=== PATIENT | female | born 1965 | race Caucasian/White ===

== ENCOUNTER → 2016-02-18 | Outpatient (CLI) | payer MEDICAID ==
[~2016-02-18] MED LIST: ALBU8.5H4 IH; ALPR1TAB PO; ALPR1TAB2; ASPI-860 PO; CITA20TA12 PO; HYDR-3702 PO; HYDR-3754 PO; HYDR-3811 PO; LOVA20TA2 PO; NAPR550T PO; NF-TORA10 PO; NITR100C3 PO; OMEP20TA PO; ONDA4TAB8 PO; PRED20TA PO; PRM25T PO; PROM25SU10 PR; TRAM-25 PO; TRAZ100T92; TRAZ150T72 PO; TRL300; [UNRECOGNIZED DRUG - CODE] PO
--- NOTE | 2016-02-18 16:03 | Diagnostic Imaging Report ---
INDICATION: Fall, wrist pain. COMPARISON: 04/10/2013. FINDINGS: Cyst formation in the distal pole of the scaphoid shows mild progression as does its arthritic joint space narrowing distally. A fracture is not identified. The distal radius and ulna are intact. IMPRESSION: Progressive radial sided carpal osteoarthritis. No fracture is identified. Dictated by: Dictated on workstation # [id number]
== END ==
LOC: RAD 15:32
PROVIDERS: ATTEND Family Medicine
DX: M25.531 Pain in right wrist (principal); W10.8XXA Fall (on) (from) other stairs and steps, initial encounter; M19.031 Primary osteoarthritis, right wrist
CPT/HCPCS: 73110

== ENCOUNTER → 2016-03-03 | Outpatient (CLI) | payer MEDICAID | LOC: RAD 14:26 | PROVIDERS: ATTEND Family Medicine | DX: M25.531 Pain in right wrist (principal) | CPT/HCPCS: 73100 ==

== ENCOUNTER → 2016-03-16 | Outpatient (CLI) | payer MEDICAID | LOC: RAD 11:13 | PROVIDERS: ATTEND Family Medicine | DX: M25.531 Pain in right wrist (principal); R07.81 Pleurodynia; R93.8 Abnormal findings on diagnostic imaging of other specified body structures | CPT/HCPCS: 71100; 73221 ==

== ENCOUNTER → 2016-03-19 | Outpatient (CLI) | payer MEDICAID | LOC: RAD 10:57 | PROVIDERS: ATTEND Family Medicine | DX: R07.81 Pleurodynia (principal); K76.89 Other specified diseases of liver | CPT/HCPCS: 71250 ==

== ENCOUNTER 2016-03-23 08:51 | Emergency (ER) | payer MEDICAID ==
[~2016-03-23] VITALS: Ht 157.5 cm; Wt 57.0 kg
[2016-03-23] MEDS ORDERED: HYDROmorphone 1 MG/ML (DILAUDID) SYRINGE IV ONE ×2 (09:25→10:20)
[2016-03-23] MEDS ORDERED: SODIUM CHLORIDE FLUSH 10 ML SYR IV PRN (09:25)
[2016-03-23] MEDS ORDERED: LORazepam 2 MG/ML (ATIVAN) 1 ML VIAL IV ONE (09:25)
[2016-03-23] MEDS ORDERED: PROMETHAZINE HCL INJ 25 MG in SODIUM CHLORIDE 25 ML IV ONE (09:25)
[2016-03-23] MEDS ORDERED: SODIUM CHLORIDE FLUSH 3 ML SYR IV PRN (09:25)
[2016-03-23 09:39] LABS: BASOPHILS % (AUTO) 0 % (0-2); EOSINOPHILS % (AUTO) 0 % (0-4); LYMPHOCYTES # (AUTO) 1.7 X10^3; MEAN CORPUSCULAR HGB CONC 35.2 g/dL (31.0-37.0); MEAN CORPUSCULAR VOLUME 90 FL (80-100); MEAN PLATELET VOLUME 9.6 FL (6.0-9.5); MONOCYTES # (AUTO) 0.5 X10^3; MONOCYTES % (AUTO) 5 % (3-11); NEUTROPHILS # (AUTO) 8.2 X10^3; NEUTROPHILS % (AUTO) 79 % (51-67); PLATELET COUNT 350 10^3uL (150-450); WHITE BLOOD COUNT 10.48 10^3uL (4.0-11.0)
[2016-03-23 09:40] LABS: MEAN CORPUSCULAR HEMOGLOBIN 31.6 PG (26.0-34.0)
[2016-03-23 09:50] LABS: ALBUMIN 4.4 g/dL (3.4-5.0); ANION GAP 15.3 MEQ/L (3-15); CALCULATED IONIZED CALCIUM 3.9 mg/dL (3.8-4.6); TOTAL PROTEIN 7.5 g/dL (6.4-8.5)
[2016-03-23 10:50] VITALS: BP 111/77
== END 2016-03-23 10:51 | disposition home or self-care (01) ==
LOC: EDUNIT# 08:51 → ED 08:52
DX: R07.9 Chest pain, unspecified (principal); R11.2 Nausea with vomiting, unspecified; F41.9 Anxiety disorder, unspecified
CPT/HCPCS: 36415; 80053; 83690; 85025; 96365; 96375; 96376; 99284; J1170; J2060; J2550; J7030; 99283

== ENCOUNTER → 2016-03-24 | Outpatient (CLI) | payer MEDICAID | LOC: RAD 09:06 | PROVIDERS: ATTEND Family Medicine | DX: K76.89 Other specified diseases of liver (principal) | CPT/HCPCS: 76705 ==

== ENCOUNTER 2016-05-19 09:27 | Emergency (ER) | payer MEDICAID ==
[~2016-05-19] VITALS: Ht 157.5 cm; Wt 60.0 kg
--- OUTSIDE RECORDS SUMMARY | 2016-05-19 09:31 | XMS REPORT | Continuity of Care Document ---
Author Author [facility] Organization [facility] Address Unknown Phone Unavailable Allergies Active Description Code Type Severity Reaction Onset Reported/Identified Relationship to Patient Clinical Status Yes NKA NKA Drug Allergy N/A N/A Yes codeine 1550 Ingredient moderate Nausea / Vomiting 03/26/2015 Yes Flagyl 7327 Drug moderate Nausea / Vomiting 03/26/2015 Yes traMADol 4180 Ingredient mild to moderate headache 03/26/2015 Yes Sulfa (Sulfonamide Antibiotics) 491 Allergen Group severe GI Problems 03/27/2015 Yes codeine [id number] Drug Allergy Moderate N/A 09/20/2015 Yes oxycodone HCl [id number] Drug Allergy Moderate Nausea/ Vomiting 09/20/2015 Yes Sulfa (Sulfonamide Antibiotics) [id number] Drug Allergy Unknown Hives 09/20/2015 Yes tramadol [id number] Drug Allergy Unknown N/V, Headache 09/20/2015 Yes Penicillins [id number] Drug Allergy Unknown N/A 03/23/2016 Medications Problems Date Dx Coded Attending Type Code Diagnosis Diagnosed By 09/10/2011 Ot 845.00 09/10/2011 Ot E883.9 11/07/2012 LARA ALLEN DO Ot 845.09 11/07/2012 LARA ALLEN DO Ot 959.7 11/07/2012 LARA ALLEN DO Ot E849.0 11/07/2012 LARA ALLEN DO Ot E927.0 04/01/2013 JUAN US MD P Ot 719.43 04/01/2013 MAGEN FOWLER, JUAN Chin Ot 842.00 04/01/2013 JUAN US MD P Ot E849.0 04/01/2013 MAGEN FOWLER, JUAN P Ot E888.9 05/09/2013 LARA ALLEN DO Ot 719.46 05/09/2013 LARA ALLEN DO Ot 836.1 05/09/2013 LARA ALLEN DO Ot E849.0 05/09/2013 LARA ALLEN DO Ot E928.8 08/03/2013 LARA ALLEN DO Ot 844.9 08/03/2013 LARA ALLEN DO Ot 959.7 08/03/2013 LARA ALLEN DO Ot E849.0 08/03/2013 LARA ALLEN DO Ot E888.9 10/26/2013 KAYY DE LA ROSA DO Ot 305.1 10/26/2013 KAYY DE LA ROSA DO Ot 465.9 10/26/2013 KAYY DE LA ROSA DO Ot 786.2 01/27/2014 Ot 719.47 01/27/2014 Ot 719.46 01/27/2014 Ot 924.11 01/27/2014 Ot E888.9 01/27/2014 Ot 573.8 01/27/2014 Ot 592.0 01/27/2014 Ot 789.03 01/27/2014 Ot V76.12 01/27/2014 Tien FOWLER, Otoniel Avalos Ot 719.43 01/27/2014 Otoniel Chauhan MD Ot 793.7 01/27/2014 Otoinel Chauhan MD Ot 719.43 01/27/2014 Alex FOWLER, Moshe Mantilla Ot 719.46 01/27/2014 Alex FOWLER, Moshe Mantilla Ot 727.51 01/27/2014 Alex FOWLER, Moshe Mantilla Ot 794.9 01/27/2014 Alex FOWLER, Moshe Mantilla Ot 719.46 01/27/2014 Alex FOWLER, Moshe Mantilla Ot 727.51 01/27/2014 Alex FOWLER, Moshe Mantilla Ot 794.9 01/27/2014 Otoniel Chauhan MD Ot 305.1 01/27/2014 Otoniel Chauhan MD Ot 466.0 01/27/2014 ROCHA KIMBERLY STEWART Ot 719.43 01/27/2014 KIMBERLY ROCHA DO Ot 727.04 04/27/2014 CHERELLE MANCIA MD Ot 599.0 04/27/2014 CHERELLE MANCIA MD Ot 788.1 06/12/2014 Ot 719.47 06/12/2014 Ot 719.46 06/12/2014 Ot 924.11 06/12/2014 Ot E888.9 06/12/2014 Ot 573.8 06/12/2014 Ot 592.0 06/12/2014 Ot 789.03 06/12/2014 Ot V76.12 06/12/2014 Tien FOWLER, Otoniel Avalos Ot 719.43 06/12/2014 Tien FOWLER, Otoniel Avalos Ot 793.7 06/12/2014 Tien FOWLER, Otoniel Avalos Ot 719.43 06/12/2014 Alex FOWLER, Moshe Mantilla Ot 719.46 06/12/2014 Alex FOWLER, Moshe Mantilla Ot 727.51 06/12/2014 Alex FOWLER, Moshe Mantilla Ot 794.9 06/12/2014 Alex FOWLER, Moshe Mantilla Ot 719.46 06/12/2014 Alex FOWLER, Moshe Mantilla Ot 727.51 06/12/2014 Alex FOWLER, Moshe Mantilla Ot 794.9 06/12/2014 Otoniel Chauhan MD Ot 305.1 06/12/2014 Otoniel Chauhan MD Ot 466.0 06/12/2014 Otoniel Chauhan MD Ot 780.79 06/12/2014 CORI LEO SERVICE CAR OPERATOR Ot 558.9 06/20/2014 Otoniel Chauhan MD Ot 780.79 06/20/2014 CORI LEO SERVICE CAR OPERATOR Ot 558.9 07/18/2014 RJ DOKAYY M Ot 845.10 07/18/2014 RJ DOKAYY M Ot 959.7 07/18/2014 RJ DOKAYY M Ot E000.9 07/18/2014 RJ DOKAYY M Ot E030 07/18/2014 RJ DOKAYY M Ot E849.0 07/18/2014 RJ DOKAYY M Ot E880.9 08/29/2014 TAYLOR FOWLER, LING Ot 733.6 08/29/2014 TAYLOR FOWLER, LING Ot 786.50 09/12/2014 ANA SHIPMAN SERVICE CAR OPERATOR Ot 789.00 09/18/2014 ANA SHIPMAN SERVICE CAR OPERATOR Ot 789.00 09/24/2014 Tien FOWLER, Otoniel Avalos Ot 573.8 09/24/2014 Tien FOWLER, Otoniel Avalos Ot 592.0 09/24/2014 Tien FOWLER, Otoniel Avalos Ot 593.2 09/24/2014 Tien FOWLER, Otoniel Avalos Ot 789.03 10/15/2014 TAYLOR FOWLER, LING Ot 729.5 10/15/2014 TAYLOR FOWLER, LING Ot 826.0 10/15/2014 TAYLOR FOWLER, LING Ot E849.0 10/15/2014 TAYLOR FOWLER, LING Ot E917.3 10/23/2014 BLANCHE FOWLER, CHERELLE P Ot 719.46 10/23/2014 BLANCHE FOWLER, CHERELLE P Ot 829.0 10/23/2014 BLANCHE FOWLER, CHERELLE P Ot 844.9 10/23/2014 BLANCHE FOWLER, CHERELLE P Ot 905.1 10/23/2014 BLANCHE FOWLER, CHERELLE P Ot E849.0 10/23/2014 BLANCHE FOWLER, CHERELLE P Ot E927.0 12/30/2014 ANA SHIPMAN SERVICE CAR OPERATOR Ot R11.10 03/17/2015 BRI GARCIA MD, MALGORZATA J Ot R10.30 03/17/2015 BRI GARCIA MD, MALGORZATA J Ot R31.9 03/20/2015 ANA SHIPMAN SERVICE CAR OPERATOR Ot R11.11 03/21/2015 BRI GARCIA MD, MALGORZATA Mantilla Ot K76.89 03/21/2015 BRI GARCIA MD, MALGORZATA J Ot N20.0 03/21/2015 BRI GARCIA MD, MALGORZATA J Ot N28.1 03/21/2015 BRI GARCIA MD, MALGORZATA Mantilla Ot R10.9 03/21/2015 BRI GARCIA MD, MALGORZATA J Ot R31.9 03/28/2015 Hector Garcia N20.0 Calculus Of Kidney 07/21/2015 ANA SHIPMAN L SERVICE CAR OPERATOR Ot R06.02 SHORTNESS OF BREATH 07/29/2015 ANA SHIPMAN SERVICE CAR OPERATOR Ot J44.9 CHRONIC OBSTRUCTIVE PULMONARY DISEASE, U 08/01/2015 WILANA BALBUENA SERVICE CAR OPERATOR Ot R06.02 SHORTNESS OF BREATH 08/08/2015 WILANA BALBUENA SERVICE CAR OPERATOR Ot J44.9 CHRONIC OBSTRUCTIVE PULMONARY DISEASE, U 09/12/2015 CORI LEO SERVICE CAR OPERATOR Ot 558.9 NONINF GASTROENTERIT NEC 09/20/2015 BALDOMERO GIBSON MD R Ot A09 INFECTIOUS GASTROENTERITIS AND COLITIS, 09/20/2015 BALDOMERO GIBSON MD R Ot R11.2 NAUSEA WITH VOMITING, UNSPECIFIED 09/25/2015 MALGORZATA ALONSO MD Ot K52.9 NONINFECTIVE GASTROENTERITIS AND COLITIS 09/25/2015 MALGORZATA ALONSO MD Ot Z86.19 PERSONAL HISTORY OF OTHER INFECTIOUS AND 09/26/2015 BALDOMERO GIBSON MD R Ot A09 INFECTIOUS GASTROENTERITIS AND COLITIS, 09/26/2015 BALDOMERO GIBSON MD R Ot R11.2 NAUSEA WITH VOMITING, UNSPECIFIED 2015 MALGORZATA ALONSO MD Ot K52.9 NONINFECTIVE GASTROENTERITIS AND COLITIS 2015 MALGORZATA ALONSO MD Ot Z86.19 PERSONAL HISTORY OF OTHER INFECTIOUS AND 12/30/2015 MALGORZATA ALONSO MD Ot K52.9 NONINFECTIVE GASTROENTERITIS AND COLITIS 12/30/2015 MALGORZATA ALONSO MD Ot Z86.19 PERSONAL HISTORY OF OTHER INFECTIOUS AND 01/13/2016 WILANA BALBUENA SERVICE CAR OPERATOR Ot R06.02 SHORTNESS OF BREATH 01/13/2016 WILANA BALBUENA SERVICE CAR OPERATOR Ot J44.9 CHRONIC OBSTRUCTIVE PULMONARY DISEASE, U 01/22/2016 MALGORZATA ALONSO MD Ot R10.2 PELVIC AND PERINEAL PAIN 01/22/2016 MALGORZATA ALONSO MD Ot R30.0 DYSURIA 02/04/2016 KIMBERLY ROCHA DO Ot K52.9 NONINFECTIVE GASTROENTERITIS AND COLITIS 02/04/2016 KIMBERLY ROCHA DO Ot R11.11 VOMITING WITHOUT NAUSEA 02/05/2016 MALGORZATA ALONSO MD Ot R10.2 PELVIC AND PERINEAL PAIN 02/05/2016 MALGORZATA ALONSO MD Ot R30.0 DYSURIA 02/06/2016 KIMBERLY ROCHA DO Ot K52.9 NONINFECTIVE GASTROENTERITIS AND COLITIS 02/06/2016 KIMBERLY ROCHA DO Ot R11.11 VOMITING WITHOUT NAUSEA 02/06/2016 KIMBERLY ROCHA DO Ot K52.9 NONINFECTIVE GASTROENTERITIS AND COLITIS 02/06/2016 KIMBERLY ROCHA DO Ot R11.11 VOMITING WITHOUT NAUSEA 02/10/2016 KIMBERLY ROCHA DO Ot K52.9 NONINFECTIVE GASTROENTERITIS AND COLITIS 02/10/2016 KIMBERLY ROCHA DO Ot R11.11 VOMITING WITHOUT NAUSEA 02/21/2016 MALGORZATA ALONSO MD Ot M19.031 PRIMARY OSTEOARTHRITIS, RIGHT WRIST 02/21/2016 MALGORZATA ALONSO MD Ot M25.531 PAIN IN RIGHT WRIST 02/21/2016 MALGORZATA ALONSO MD Ot W10.8XXA FALL (ON) (FROM) OTHER STAIRS AND STEPS, 02/23/2016 MALGORZATA ALONSO MD Ot M19.031 PRIMARY OSTEOARTHRITIS, RIGHT WRIST 02/23/2016 MALGORZATA ALONSO MD Ot M25.531 PAIN IN RIGHT WRIST 02/23/2016 MALGORZATA ALONSO MD Ot W10.8XXA FALL (ON) (FROM) OTHER STAIRS AND STEPS, 03/05/2016 MALGORZATA ALONSO MD Ot M25.531 PAIN IN RIGHT WRIST 03/08/2016 MALGORZATA ALONSO MD Ot M25.531 PAIN IN RIGHT WRIST 03/09/2016 MALGORZATA ALONSO MD Ot M25.531 PAIN IN RIGHT WRIST 03/18/2016 MALGORZATA ALONSO MD Ot M25.531 PAIN IN RIGHT WRIST 03/18/2016 MALGORZATA ALONSO MD Ot R07.81 PLEURODYNIA 03/18/2016 MALGORZATA ALONSO MD Ot R93.8 ABNORMAL FINDINGS ON DIAGNOSTIC IMAGING 03/18/2016 MALGORZATA ALONSO MD Ot M25.531 PAIN IN RIGHT WRIST 03/23/2016 LING VAZQUEZ MD, Ot F41.9 ANXIETY DISORDER, UNSPECIFIED 03/23/2016 LING VAZQUEZ MD Ot R07.9 CHEST PAIN, UNSPECIFIED 03/23/2016 LING VAZQUEZ MD Ot R11.2 NAUSEA WITH VOMITING, UNSPECIFIED 03/26/2016 MALGORZATA ALONSO MD Ot K76.89 OTHER SPECIFIED DISEASES OF LIVER 03/26/2016 MALGORZATA ALONSO MD Ot R07.81 PLEURODYNIA 03/29/2016 LING VAZQUEZ MD, Ot F41.9 ANXIETY DISORDER, UNSPECIFIED 03/29/2016 LING VAZQUEZ MD Ot R07.9 CHEST PAIN, UNSPECIFIED 03/29/2016 LING VAZQUEZ MD Ot R11.2 NAUSEA WITH VOMITING, UNSPECIFIED 03/30/2016 MALGORZATA ALONSO MD Ot K76.89 OTHER SPECIFIED DISEASES OF LIVER 04/05/2016 MALGORZATA ALONSO MD, Ot M25.531 PAIN IN RIGHT WRIST 04/05/2016 MALGORZATA ALONSO MD Ot R07.81 PLEURODYNIA 04/05/2016 MALGORZATA ALONSO MD Ot R93.8 ABNORMAL FINDINGS ON DIAGNOSTIC IMAGING 04/08/2016 MALGORZATA ALONSO MD Ot M19.031 PRIMARY OSTEOARTHRITIS, RIGHT WRIST 04/08/2016 MALGORZATA ALONSO MD Ot M25.531 PAIN IN RIGHT WRIST 04/08/2016 MALGORZATA ALONSO MD Ot W10.8XXA FALL (ON) (FROM) OTHER STAIRS AND STEPS, 04/08/2016 MALGORZATA ALONSO MD Ot K76.89 OTHER SPECIFIED DISEASES OF LIVER 04/08/2016 MALGORZATA ALONSO MD Ot R07.81 PLEURODYNIA 04/09/2016 MALGORZATA ALONSO MD Ot K76.89 OTHER SPECIFIED DISEASES OF LIVER Procedures Results Test Result Range Complete blood count (CBC) with automated white blood cell (WBC) differential - 09/20/15 19:40 Blood automated leukocyte count 12.16 4.0-11.0 Erythrocytes 4.98 4.00-5.00 12.0-16.0;g/dL 15.4 12.0-15.5 Hematocrit 43.50 35.00-45.00 Automated erythrocyte mean corpuscular volume 87 80-100 Mean corpuscular hemoglobin (MCH) determination 30.9 26.0-34.0 Automated erythrocyte mean corpuscular hemoglobin concentration measurement ( mass/volume) 35.4 31.0-37.0 Erythrocyte distribution width 15.2 11.8 -15.6 Automated blood platelet count 355 150- 450 Automated blood platelet mean volume measurement 9.8 6.0-9.5 Automated neutrophil percentage 64 51- 67 Lymphocytes/100 leukocytes 27 20-46 Automated monocyte percentage 8 3-11 Eosinophil count auto 1 0-4 Automated basophil percentage 0 0-2 Automated blood neutrophil count 7.8 Blood lymphocytes count (number/volume) 3.3 Automated blood monocyte count 1.0 Blood absolute eosinophil count 0.1 Basophils 0.0 Comprehensive metabolic panel - 09/20/15 19:40 Sodium measurement 107 70-110 Carbon dioxide measurement 24 22-29 Serum or plasma anion gap 19.3 3-15 BLOOD UREA NITROGEN 13 7-18 CREATININE SERUM 0.66 0.6-1.2 Brucella species antibody panel (IgG, IgM) 20 10-20 Estimated glomerular filtration rate (GFR) 115.2 Estimated glomerular filtration rate (GFR) non- 95.2 OSMOLALITY,CALCULATED 280 280-300 CALCIUM 10.2 8.8-10.8 Calculated ionized calcium measurement 4.2 3.8-4.6 BILIRUBIN,TOTAL 0.7 0.1-1.0 Serum or plasma alkaline phosphatase measurement 92 38-126 ASPARTATE AMINO TRANSFERASE 18 15-37 ALANINE AMINOTRANSFERASE 16 30-65 Serum or plasma total protein measurement 7.9 6.4-8.5 Serum or plasma albumin measurement 4.8 3.4-5.0 Serum or plasma albumin/globulin mass ratio 1.548 1.1-1.8 Serum or plasma amylase measurement - 09/20/15 19:40 Serum or plasma amylase measurement 55 25-115 Lipase measurement - 09/20/15 19:40 Lipase measurement 48 23-300 UA CULTURE IF INDICATED* - 09/20/15 20:00 COLLECTION METHOD CLEAN CATCH Color of urine by auto Dark Yellow Urine appearance determination Slightly Cloudy Urine pH measurement by automated test strip 6.0 5.0 - 8.0 Specific gravity of urine by automated test strip >= 1.005-1.030 Urine protein measurement by test strip (mass/volume) Trace Negative Urine glucose detection by automated test strip Negative Negative Urine erythrocytes count by automated test strip (number/volume) Trace-lysed Negative Urine ketones detection by automated test strip Negative Negative Urine nitrite detection by test strip Negative Negative Urine total bilirubin detection by automated test strip Negative Negative Urine urobilinogen measurement by automated test strip (mass/volume) 0.2 0.2-1.0 Urine leukocyte esterase detection by dipstick Negative Negative Microscopic examination of urine - 09/20/15 20:00 Urine volume measurement 12 mL Urine erythrocytes detection by automated method 2-5 Automated urine sediment leukocyte count by microscopy (number/high power field ) Bacteria None Seen SQUAMOUS EPITHELIAL CELL,UR >100 MUCOUS,URINE 2+ GASTROINTESTINAL PNL BY PCR - 09/22/15 12:15 Campylobacter sp DNA Negative Negative Clostridium difficile toxin genes Negative Negative Pleasiomonas shigelloides Negative Negative Salmonella sp DNA Negative Negative Vibrio sp DNA Negative Negative Vibrio cholerae DNA Negative Negative Yersinia sp DNA Negative Negative Escherichia coli DNA Negative Negative Escherichia coli shiga-llike toxin (sxt1+sxt2)+H7 Negative Negative Escherichia coli O157:H7 DNA Negative Negative Cryptosporidium sp DNA Negative Negative Cyclospora cayetanensis DNA Negative Negative Entamoeba histolytica DNA Negative Negative Giardia lamblia DNA Negative Negative Adenovirus DNA Negative Negative Astrovirus Negative Negative Norovirus RNA Negative Negative Rotavirus RNA Negative Negative Sapovirus Negative Negative Stool leukocytes detection by light microscopy - 09/22/15 12:15 General health panel - 09/22/15 12:15 Total cell count DISLA FOR RESULTS: * - NEW RESULT - RESULT WAS MODIFIED AFTER FINAL STATUS SET Urine culture - 01/16/16 14:43 Urine culture DISLA FOR RESULTS: * - NEW RESULT - RESULT WAS MODIFIED AFTER FINAL STATUS SET Complete blood count (CBC) with automated white blood cell (WBC) differential - 01/16/16 15:00 Blood automated leukocyte count 8.59 4.0 -11.0 Erythrocytes 4.68 4.00-5.00 12.0-16.0;g/dL 14.7 12.0-15.5 Hematocrit 43.00 35.00-45.00 Automated erythrocyte mean corpuscular volume 92 80-100 Mean corpuscular hemoglobin (MCH) determination 31.4 26.0-34.0 Automated erythrocyte mean corpuscular hemoglobin concentration measurement ( mass/volume) 34.2 31.0-37.0 Erythrocyte distribution width 15.3 11.8 -15.6 Automated blood platelet count 346 150- 450 Automated blood platelet mean volume measurement 10.4 6.0-9.5 Automated neutrophil percentage 49 51- 67 Lymphocytes/100 leukocytes 40 20-46 Automated monocyte percentage 6 3-11 Eosinophil count auto 5 0-4 Automated basophil percentage 0 0-2 Automated blood neutrophil count 4.2 Blood lymphocytes count (number/volume) 3.4 Automated blood monocyte count 0.5 Blood absolute eosinophil count 0.4 Basophils 0.0 Comprehensive metabolic panel - 01/16/16 15:00 Sodium measurement 84 70-110 Carbon dioxide measurement 31 22-29 Serum or plasma anion gap 12.9 3-15 BLOOD UREA NITROGEN 7 7-18 CREATININE SERUM 0.71 0.6-1.2 Brucella species antibody panel (IgG, IgM) 10 10-20 Estimated glomerular filtration rate (GFR) 105.4 Estimated glomerular filtration rate (GFR) non- 87.1 OSMOLALITY,CALCULATED 277 280-300 CALCIUM 9.9 8.8-10.8 Calculated ionized calcium measurement 4.5 3.8-4.6 BILIRUBIN,TOTAL 0.3 0.1-1.0 Serum or plasma alkaline phosphatase measurement 106 38-126 ASPARTATE AMINO TRANSFERASE 14 15-37 ALANINE AMINOTRANSFERASE 21 30-65 Serum or plasma total protein measurement 6.7 6.4-8.5 Serum or plasma albumin measurement 4.5 3.4-5.0 Serum or plasma albumin/globulin mass ratio 2.045 1.1-1.8 Complete blood count (CBC) with automated white blood cell (WBC) differential - 03/23/16 09:31 Blood automated leukocyte count 10.48 4.0-11.0 Erythrocytes 4.87 4.00-5.00 12.0-16.0;g/dL 15.4 12.0-15.5 Hematocrit 43.80 35.00-45.00 Automated erythrocyte mean corpuscular volume 90 80-100 Mean corpuscular hemoglobin (MCH) determination 31.6 26.0-34.0 Automated erythrocyte mean corpuscular hemoglobin concentration measurement ( mass/volume) 35.2 31.0-37.0 Erythrocyte distribution width 15.9 11.8 -15.6 Automated blood platelet count 350 150- 450 Automated blood platelet mean volume measurement 9.6 6.0-9.5 Automated neutrophil percentage 79 51- 67 Lymphocytes/100 leukocytes 16 20-46 Automated monocyte percentage 5 3-11 Eosinophil count auto 0 0-4 Automated basophil percentage 0 0-2 Automated blood neutrophil count 8.2 Blood lymphocytes count (number/volume) 1.7 Automated blood monocyte count 0.5 Blood absolute eosinophil count 0.0 Basophils 0.0 Comprehensive metabolic panel - 03/23/16 09:31 Sodium measurement 108 70-110 CARBON DIOXIDE 22 22-29 Serum or plasma anion gap 15.3 3-15 BLOOD UREA NITROGEN 14 7-18 CREATININE SERUM 0.61 0.6-1.2 Brucella species antibody panel (IgG, IgM) 23 10-20 Estimated glomerular filtration rate (GFR) 125.6 Estimated glomerular filtration rate (GFR) non- 103.8 OSMOLALITY,CALCULATED 278 280-300 CALCIUM 9.1 8.8-10.8 Calculated ionized calcium measurement 3.9 3.8-4.6 BILIRUBIN,TOTAL 0.7 0.1-1.0 Serum or plasma alkaline phosphatase measurement 120 38-126 ASPARTATE AMINO TRANSFERASE 20 15-37 ALANINE AMINOTRANSFERASE 27 30-65 Serum or plasma total protein measurement 7.5 6.4-8.5 Serum or plasma albumin measurement 4.4 3.4-5.0 Serum or plasma albumin/globulin mass ratio 1.419 1.1-1.8 Lipase measurement - 03/23/16 09:31 Lipase measurement 29 23-300 Encounters ACCT No. Visit Date/Time Discharge Status Pt. Type Provider Facility Loc./Unit Complaint [id number] 03/27/2015 09:26:00 03/27/2015 23: 59:00 DIS Outpatient Hector Garcia [facility] OUTPT right ESWL; cystoscopy with right retrogrades
--- OUTSIDE RECORDS SUMMARY | 2016-05-19 09:32 | XMS REPORT | Continuity of Care Document ---
Author Author [facility] Organization [facility] Address Unknown Phone Unavailable Allergies Active Description [...] Group severe GI Problems 03/27/2015 Yes codeine [id number] Drug Allergy Moderate N/A 09/20/2015 Yes oxycodone HCl [id number] Drug Allergy Moderate Nausea/ Vomiting 09/20/2015 Yes Sulfa (Sulfonamide Antibiotics) [id number] Drug Allergy Unknown Hives 09/20/2015 Yes tramadol [id number] Drug Allergy Unknown N/V, Headache 09/20/2015 Yes Penicillins [id number] Drug Allergy Unknown N/A 03/23/2016 Medications Problems Date Dx Coded Attending Type Code Diagnosis Diagnosed By 09/10/2011 Ot 845.00 09/10/2011 Ot E883.9 11/07/2012 LAAR ALLEN DO Ot 845.09 11/07/2012 LARA ALLEN [...] 01/27/2014 Otoniel Chauhan MD Ot 793.7 01/27/2014 Otoniel Chauhan MD Ot 719.43 01/27/2014 Alex FOWLER, [...] Chauhan MD Ot 780.79 06/12/2014 CORI LEO INTERPRETER AND TRANSLATOR Ot 558.9 06/20/2014 Otoniel Chauhan MD Ot 780.79 06/20/2014 CORI LEO INTERPRETER AND TRANSLATOR Ot 558.9 07/18/2014 RJ DOKAYY M Ot 845.10 07/18/2014 RJ DOKAYY M Ot 959.7 07/18/2014 RJ DOKAYY M Ot E000.9 07/18/2014 RJ DOKAYY M Ot E030 07/18/2014 RJ DOKAYY M Ot E849.0 07/18/2014 RJ DOKAYY M Ot E880.9 08/29/2014 TAYLOR FOWLER, LING Ot 733.6 08/29/2014 TAYLOR FOWLER, LING Ot 786.50 09/12/2014 ANA SHIPMAN INTERPRETER AND TRANSLATOR Ot 789.00 09/18/2014 ANA SHIPMAN INTERPRETER AND TRANSLATOR Ot 789.00 09/24/2014 Tien FOWLER, Otoniel Avalos [...] CHERELLE P Ot E927.0 12/30/2014 ANA SHIPMAN INTERPRETER AND TRANSLATOR Ot R11.10 03/17/2015 BRI GARCIA MD, MALGORZATA J Ot R10.30 03/17/2015 BRI GARCIA MD, MALGORZATA J Ot R31.9 03/20/2015 ANA SHIPMAN INTERPRETER AND TRANSLATOR Ot R11.11 03/21/2015 BRI GARCIA MD, MALGORZATA Mantilla Ot K76.89 03/21/2015 BRI GARCIA MD, MALGORZATA J Ot N20.0 03/21/2015 BRI GARCIA MD, MALGORZATA J Ot N28.1 03/21/2015 BRI GARCIA MD, MALGORZATA Mantilla Ot R10.9 03/21/2015 BRI GARCIA MD, MALGORZATA J Ot R31.9 03/28/2015 Hector Garcia N20.0 Calculus Of Kidney 07/21/2015 ANA SHIPMAN L INTERPRETER AND TRANSLATOR Ot R06.02 SHORTNESS OF BREATH 07/29/2015 ANA SHIPMAN INTERPRETER AND TRANSLATOR Ot J44.9 CHRONIC OBSTRUCTIVE PULMONARY DISEASE, U 08/01/2015 WILANA BALBUENA INTERPRETER AND TRANSLATOR Ot R06.02 SHORTNESS OF BREATH 08/08/2015 WILANA BALBUENA INTERPRETER AND TRANSLATOR Ot J44.9 CHRONIC OBSTRUCTIVE PULMONARY DISEASE, U 09/12/2015 CORI LEO INTERPRETER AND TRANSLATOR Ot 558.9 NONINF GASTROENTERIT NEC 09/20/2015 BALDOMERO [...] Ot R11.2 NAUSEA WITH VOMITING, UNSPECIFIED 2015 MALOGRZATA ALONSO MD Ot K52.9 NONINFECTIVE GASTROENTERITIS AND COLITIS 2015 MALGORZATA ALONSO MD Ot Z86.19 PERSONAL HISTORY OF OTHER INFECTIOUS AND 12/30/2015 MALGORZATA ALONSO MD Ot K52.9 NONINFECTIVE GASTROENTERITIS AND COLITIS 12/30/2015 MALGORZATA ALONSO MD Ot Z86.19 PERSONAL HISTORY OF OTHER INFECTIOUS AND 01/13/2016 WILAAN BALBUENA INTERPRETER AND TRANSLATOR Ot R06.02 SHORTNESS OF BREATH 01/13/2016 WILANA BALBUENA INTERPRETER AND TRANSLATOR Ot J44.9 CHRONIC OBSTRUCTIVE PULMONARY DISEASE, U [...] M25.531 PAIN IN RIGHT WRIST 03/18/2016 MALGORZATA AOLNSO MD Ot R07.81 PLEURODYNIA 03/18/2016 MALGORZATA ALONSO [...] Status Pt. Type Provider Facility Loc./Unit Complaint [id number] 03/27/2015 09:26:00 03/27/2015 23: 59:00 DIS Outpatient Hector Garcia [place] OUTPT right ESWL; cystoscopy with right retrogrades
[2016-05-19] MEDS ORDERED: TETANUS, DIPTHERIA, PERTUSSIS (ADACELL) VACCINE 0.5 ML VIAL IM ONE (09:40)
[2016-05-19] MEDS ORDERED: BACITRACIN OINTMENT 0.9 GM PACKET TOP ONE (09:45)
[2016-05-19] MEDS ORDERED: LIDOCAINE 1% (XYLOCAINE) 20 ML VIAL INJ ONE (09:45)
[2016-05-19 10:10] VITALS: BP 110/79
== END 2016-05-19 10:11 | disposition home or self-care (01) ==
LOC: ED 09:28
DX: S61.411A Laceration without foreign body of right hand, initial encounter (principal); W25.XXXA Contact with sharp glass, initial encounter; Y93.G1 Activity, food preparation and clean up; Y92.000 Kitchen of unspecified non-institutional (private) residence as the place of occurrence of the external cause
CPT/HCPCS: 12001; 90471; 90715; 99283; A9270; 99282